=== PATIENT | female | born 1965 | race Caucasian/White ===

== ENCOUNTER 2016-12-05 20:20 | Inpatient (IN) | payer OTHER ==
[~2016-12-05] VITALS: Ht 170.2 cm; Wt 66.4 kg
[2016-12-05] MEDS ORDERED: NOREPINEPHRINE 4 MG in SODIUM CHLORIDE 0.9% 246 ML IV PRN (21:46)
[2016-12-05] MEDS ORDERED: PLEASE ENTER HEIGHT AND WEIGHT MC SCH (22:00)
[2016-12-05] MEDS ORDERED: DEXTROSE 50%, 50ML SYRINGE IVPush PRN (22:00)
[2016-12-05] MEDS ORDERED: LIDOCAINE-MPF 1%, 2ML ENDO PRN (22:00)
[2016-12-05] MEDS ORDERED: PLEASE ENTER ALLERGIES MC SCH ×2 (22:00)
[2016-12-05] MEDS ORDERED: GLUCAGON 1 MG IM PRN (22:00)
[2016-12-05] MEDS ORDERED: VANCOMYCIN PER PHARMACY MC PRN (22:00)
[2016-12-05] MEDS ORDERED: ALBUTEROL/IPRATROPIUM 2.5MG/0.5MG, 3 ML INLINE PRN (22:00)
[2016-12-05] MEDS: PROPOFOL 100 ML IV PRN (22:24)
[2016-12-05] MEDS ORDERED: THIAMINE 200 MG in SODIUM CHLORIDE 0.9% 50 ML IV ONE (22:30)
[2016-12-05] MEDS: FENTANYL PF 100 MCG/2ML IVPush PRN (22:31)
[2016-12-05] MEDS: SODIUM CHLORIDE 0.9% 1,000 ML IV SCH (22:31)
[2016-12-05] MEDS ORDERED: OSEL30CA PO (22:40)
[2016-12-05 22:43] LABS: IS PT STATUS REG ER OR PRE ER? NO
[2016-12-05 23:00] LABS: ABG COLLECTION SITE RIGHT BRACHIAL
[2016-12-05] MEDS ORDERED: CEFTRIAXONE 2 GM in SODIUM CHLORIDE 0.9% 50 ML IV SCH (23:00)
[2016-12-05] MEDS ORDERED: PHARMACOKINETIC MONITORING MC PRN (23:00)
[2016-12-05 23:15] LABS: ASPARTATE AMINO TRANSFERASE 39 U/L (15-37); BLOOD UREA NITROGEN 11 mg/dL (7-18)
[2016-12-05 23:20] LABS: IS PT STATUS REG ER OR PRE ER? NO
[2016-12-05] MEDS: DEXAMETHASONE 4 MG/ML, 1ML IVPush SCH (23:32)
[2016-12-05] MEDS: AMPICILLIN 2 GM in SODIUM CHLORIDE 0.9% 100 ML IV SCH (23:32)
[2016-12-06] MEDS ORDERED: OSEL75CA PO (00:42)
[2016-12-06] MEDS ORDERED: [UNRECOGNIZED DRUG - CODE] PO (00:42)
[2016-12-06] MEDS: FENTANYL PF 100 MCG/2ML IVPush PRN ×5 (01:40→11:42)
[2016-12-06] MEDS: AMPICILLIN 2 GM in SODIUM CHLORIDE 0.9% 100 ML IV SCH ×6 (03:26→23:20)
[2016-12-06] MEDS: METOPROLOL 1 MG/ML, 5ML IVPush SCH ×2 (03:26→08:14)
[2016-12-06 03:40] VITALS: BP 122/61
[2016-12-06 04:00] VITALS: BP 140/67
[2016-12-06] MEDS: ACYCLOVIR 650 MG in SODIUM CHLORIDE 0.9% 100 ML IV SCH ×3 (04:13→19:43)
[2016-12-06 04:28] LABS: ABG COLLECTION SITE RIGHT BRACHIAL
[2016-12-06 04:34] LABS: BLOOD UREA NITROGEN 12 mg/dL (7-18)
[2016-12-06 04:38] LABS: ASPARTATE AMINO TRANSFERASE 36 U/L (15-37)
[2016-12-06 04:42] LABS: IS PT STATUS REG ER OR PRE ER? NO
[2016-12-06] MEDS: PROPOFOL 100 ML IV PRN ×4 (05:11→21:33)
[2016-12-06 06:08] VITALS: BP 157/65
[2016-12-06] MEDS: DEXAMETHASONE 4 MG/ML, 1ML IVPush SCH ×4 (06:20→22:13)
[2016-12-06] MEDS: CEFTRIAXONE PMX 2GM/50ML 50 ML IVPB SCH ×2 (06:20→18:04)
[2016-12-06] MEDS: SODIUM CHLORIDE 0.9% 1,000 ML IV SCH ×2 (07:18→18:05)
[2016-12-06] MEDS: VANCOMYCIN 1,300 MG in SODIUM CHLORIDE 0.9% 250 ML IV SCH ×3 (08:13→20:46)
[2016-12-06] MEDS: OSELTAMIVIR 6 MG/ML ORAL SUSP PO SCH ×2 (08:14→20:45)
[2016-12-06] MEDS: SODIUM CHLORIDE FLUSH 10ML SYR IVF SCH ×2 (08:14→20:46)
[2016-12-06] MEDS ORDERED: OSELTAMIVIR 75 MG CAPSULE PO SCH (09:00)
[2016-12-06] MEDS ORDERED: FENTANYL PF 2,500 MCG in SODIUM CHLORIDE 0.9% 200 ML IV PRN ×2 (09:00→14:31)
[2016-12-06] MEDS: PROPYLTHIOURACIL 50 MG TABLET PO SCH ×4 (10:18→22:13)
[2016-12-06] MEDS: CHOLESTYRAMINE 4GM PACKET PO SCH ×3 (11:18→21:20)
[2016-12-06] MEDS ORDERED: POTASSIUM IODIDE ORAL.SOLN 1 GM/ML PO SCH (11:30)
[2016-12-06] MEDS ORDERED: MIDAZOLAM 1 MG/ML, 5ML ONE (11:59)
[2016-12-06] MEDS ORDERED: MIDAZOLAM 1 MG/ML, 5ML IVPush ONE ×2 (12:30→17:30)
[2016-12-06] MEDS: PROPRANOLOL 20 MG TABLET PO SCH ×2 (14:39→19:47)
[2016-12-06] MEDS: POTASSIUM IODIDE ORAL.SOLN 1 GM/ML PO SCH ×2 (18:05→23:21)
[2016-12-06] MEDS: FAMOTIDINE 20 MG/2 ML IVPush SCH (20:45)
[2016-12-06] MEDS: ENOXAPARIN 40 MG/0.4 ML SQ SCH (20:46)
[2016-12-06] MEDS ORDERED: VANCOMYCIN PER PHARMACY MC PRN (21:30)
[2016-12-06] MEDS ORDERED: DEXTROSE 50%, 50ML SYRINGE IVPush PRN (21:30)
[2016-12-06] MEDS ORDERED: GLUCAGON 1 MG IM PRN (21:30)
[2016-12-07] MEDS: PROPRANOLOL 20 MG TABLET PO SCH ×4 (01:59→20:30)
[2016-12-07] MEDS: PROPYLTHIOURACIL 50 MG TABLET PO SCH ×6 (02:15→22:04)
[2016-12-07] MEDS: AMPICILLIN 2 GM in SODIUM CHLORIDE 0.9% 100 ML IV SCH ×6 (03:15→23:07)
[2016-12-07] MEDS: ACYCLOVIR 650 MG in SODIUM CHLORIDE 0.9% 100 ML IV SCH ×3 (03:15→19:43)
[2016-12-07 04:21] LABS: ABG COLLECTION SITE RIGHT RADIAL; COLLATERAL CIRCULATION TESTING NORMAL
[2016-12-07 04:34] LABS: ASPARTATE AMINO TRANSFERASE 17 U/L (15-37); BLOOD UREA NITROGEN 14 mg/dL (7-18)
[2016-12-07] MEDS: POTASSIUM IODIDE ORAL.SOLN 1 GM/ML PO SCH ×4 (04:39→23:07)
[2016-12-07 05:00] VITALS: BP 119/49
[2016-12-07] MEDS: PROPOFOL 100 ML IV PRN ×2 (05:38→12:47)
[2016-12-07] MEDS: CEFTRIAXONE PMX 2GM/50ML 50 ML IVPB SCH ×2 (05:39→18:18)
[2016-12-07] MEDS: DEXAMETHASONE 4 MG/ML, 1ML IVPush SCH ×4 (05:39→22:04)
[2016-12-07] MEDS: CHOLESTYRAMINE 4GM PACKET PO SCH ×4 (06:00→20:35)
[2016-12-07] MEDS: SODIUM CHLORIDE 0.9% 1,000 ML IV SCH ×2 (06:19→19:50)
[2016-12-07] MEDS: VANCOMYCIN 1,300 MG in SODIUM CHLORIDE 0.9% 250 ML IV SCH ×2 (08:13→20:36)
[2016-12-07] MEDS: OSELTAMIVIR 6 MG/ML ORAL SUSP PO SCH ×2 (08:49→20:35)
[2016-12-07] MEDS: FAMOTIDINE 20 MG/2 ML IVPush SCH ×2 (08:49→20:36)
[2016-12-07] MEDS: SODIUM CHLORIDE FLUSH 10ML SYR IVF SCH ×2 (08:50→20:36)
[2016-12-07] MEDS: ENOXAPARIN 40 MG/0.4 ML SQ SCH (20:35)
[2016-12-08] MEDS: PROPYLTHIOURACIL 50 MG TABLET PO SCH ×5 (02:05→20:36)
[2016-12-08] MEDS: PROPRANOLOL 20 MG TABLET PO SCH ×2 (02:30→08:30)
[2016-12-08] MEDS: AMPICILLIN 2 GM in SODIUM CHLORIDE 0.9% 100 ML IV SCH ×6 (03:07→21:54)
[2016-12-08] MEDS: ACYCLOVIR 650 MG in SODIUM CHLORIDE 0.9% 100 ML IV SCH ×3 (03:07→19:24)
[2016-12-08] MEDS: DEXAMETHASONE 4 MG/ML, 1ML IVPush SCH ×4 (03:55→21:55)
[2016-12-08] MEDS: POTASSIUM IODIDE ORAL.SOLN 1 GM/ML PO SCH ×4 (05:06→23:16)
[2016-12-08 05:13] LABS: ABG COLLECTION SITE RIGHT RADIAL; COLLATERAL CIRCULATION TESTING NORMAL
[2016-12-08 05:39] LABS: BLOOD UREA NITROGEN 13 mg/dL (7-18)
[2016-12-08] MEDS: CHOLESTYRAMINE 4GM PACKET PO SCH ×4 (06:00→21:54)
[2016-12-08] MEDS: CEFTRIAXONE PMX 2GM/50ML 50 ML IVPB SCH ×2 (06:13→17:27)
[2016-12-08] MEDS: VANCOMYCIN 1,300 MG in SODIUM CHLORIDE 0.9% 250 ML IV SCH ×2 (07:42→20:36)
[2016-12-08] MEDS: SODIUM CHLORIDE 0.9% 1,000 ML IV SCH (07:42)
[2016-12-08] MEDS: OSELTAMIVIR 6 MG/ML ORAL SUSP PO SCH ×2 (08:52→20:37)
[2016-12-08] MEDS: FAMOTIDINE 20 MG/2 ML IVPush SCH ×2 (08:52→20:35)
[2016-12-08] MEDS: SODIUM CHLORIDE FLUSH 10ML SYR IVF SCH ×2 (08:52→21:56)
[2016-12-08] MEDS: POTASSIUM CHLORIDE 20 MEQ TAB.ER.PRT PO ONE ×2 (10:30→15:58)
[2016-12-08] MEDS: ENALAPRILAT 1.25 MG/ML, 2ML IV PRN ×2 (15:01→21:55)
[2016-12-08] MEDS: FENTANYL PF 100 MCG/2ML IVPush PRN ×2 (17:27→23:49)
[2016-12-08] MEDS: AMLODIPINE 5 MG TABLET PO SCH (18:46)
[2016-12-08] MEDS: ENOXAPARIN 40 MG/0.4 ML SQ SCH (20:36)
[2016-12-08] MEDS ORDERED: POTASSIUM CHLORIDE 20 MEQ PACKET PO ONE (21:30)
[2016-12-08 22:20] LABS: BLOOD UREA NITROGEN 10 mg/dL (7-18)
[2016-12-08] MEDS ORDERED: POTASSIUM CHLORIDE 40 MEQ in SODIUM CHLORIDE 0.9% 500 ML IV ONE (23:30)
[2016-12-08] MEDS ORDERED: MAGNESIUM SULFATE PMX 4GM/100M 100 ML IV ONE (23:30)
[2016-12-09] MEDS: PROPYLTHIOURACIL 50 MG TABLET PO SCH ×6 (01:28→22:54)
[2016-12-09] MEDS: AMPICILLIN 2 GM in SODIUM CHLORIDE 0.9% 100 ML IV SCH ×2 (03:06→06:15)
[2016-12-09] MEDS ORDERED: POTASSIUM CHLORIDE 40 MEQ in SODIUM CHLORIDE 0.9% 500 ML IV ONE (03:30)
[2016-12-09] MEDS: ACYCLOVIR 650 MG in SODIUM CHLORIDE 0.9% 100 ML IV SCH (03:44)
[2016-12-09] MEDS: DEXAMETHASONE 4 MG/ML, 1ML IVPush SCH ×4 (03:44→22:53)
[2016-12-09 04:46] LABS: ABG COLLECTION SITE RIGHT RADIAL; COLLATERAL CIRCULATION TESTING NORMAL
[2016-12-09 04:56] LABS: ASPARTATE AMINO TRANSFERASE 14 U/L (15-37); BLOOD UREA NITROGEN 10 mg/dL (7-18)
[2016-12-09] MEDS: CEFTRIAXONE PMX 2GM/50ML 50 ML IVPB SCH ×2 (05:45→18:01)
[2016-12-09] MEDS: POTASSIUM IODIDE ORAL.SOLN 1 GM/ML PO SCH ×3 (05:45→20:37)
[2016-12-09] MEDS: CHOLESTYRAMINE 4GM PACKET PO SCH ×4 (06:15→21:00)
[2016-12-09] MEDS: VANCOMYCIN 1,300 MG in SODIUM CHLORIDE 0.9% 250 ML IV SCH (07:26)
[2016-12-09] MEDS: FAMOTIDINE 20 MG/2 ML IVPush SCH ×2 (08:40→21:11)
[2016-12-09] MEDS: AMLODIPINE 5 MG TABLET PO SCH (08:40)
[2016-12-09] MEDS: SODIUM CHLORIDE FLUSH 10ML SYR IVF SCH ×2 (08:40→21:10)
[2016-12-09] MEDS: OSELTAMIVIR 6 MG/ML ORAL SUSP PO SCH (09:13)
[2016-12-09] MEDS: ENOXAPARIN 40 MG/0.4 ML SQ SCH (21:11)
[2016-12-10] MEDS: POTASSIUM IODIDE ORAL.SOLN 1 GM/ML PO SCH ×3 (02:36→15:04)
[2016-12-10] MEDS: PROPYLTHIOURACIL 50 MG TABLET PO SCH ×6 (02:36→22:19)
[2016-12-10] MEDS: DEXAMETHASONE 4 MG/ML, 1ML IVPush SCH ×4 (04:37→22:18)
[2016-12-10 04:48] LABS: BLOOD UREA NITROGEN 21 mg/dL (7-18)
[2016-12-10 05:50] LABS: DIFF TOTAL CELLS COUNTED 100 CELL DIFF
[2016-12-10 05:52] LABS: VERIFY COUNTS? YES
[2016-12-10 05:53] LABS: ANISOCYTOSIS 1+; GIANT PLATELETS 1+; LARGE PLATELETS 1+; POLYCHROMASIA 1+
[2016-12-10] MEDS: CHOLESTYRAMINE 4GM PACKET PO SCH ×4 (06:00→21:00)
[2016-12-10] MEDS: CEFTRIAXONE PMX 2GM/50ML 50 ML IVPB SCH ×2 (06:10→18:05)
[2016-12-10] MEDS ORDERED: POTASSIUM CHLORIDE 20 MEQ TAB.ER.PRT PO ONE ×2 (08:00→12:00)
[2016-12-10] MEDS: FAMOTIDINE 20 MG/2 ML IVPush SCH ×2 (08:57→21:20)
[2016-12-10] MEDS: OSELTAMIVIR 75 MG CAPSULE NG SCH ×2 (08:57→22:19)
[2016-12-10] MEDS: AMLODIPINE 5 MG TABLET PO SCH (08:58)
[2016-12-10] MEDS: SODIUM CHLORIDE FLUSH 10ML SYR IVF SCH ×2 (09:14→22:19)
[2016-12-10] MEDS: VANCOMYCIN 1,300 MG in SODIUM CHLORIDE 0.9% 250 ML IV SCH (10:54)
[2016-12-10] MEDS ORDERED: PHARMACOKINETIC MONITORING MC PRN (11:00)
[2016-12-10] MEDS ORDERED: PHARMACOKINETIC CONSULTATION MC ONE (11:00)
[2016-12-10] MEDS ORDERED: VANCOMYCIN PER PHARMACY MC PRN (11:00)
[2016-12-10 17:46] VITALS: BP 152/76
[2016-12-10 18:46] VITALS: BP 145/74
[2016-12-10] MEDS: ENOXAPARIN 40 MG/0.4 ML SQ SCH (21:17)
[2016-12-11] MEDS: VANCOMYCIN 1,300 MG in SODIUM CHLORIDE 0.9% 250 ML IV SCH ×2 (01:13→12:03)
[2016-12-11 01:44] VITALS: BP 162/80
[2016-12-11] MEDS: PROPYLTHIOURACIL 50 MG TABLET PO SCH ×5 (02:30→20:58)
[2016-12-11 05:51] LABS: BLOOD UREA NITROGEN 17 mg/dL (7-18)
[2016-12-11] MEDS: CHOLESTYRAMINE 4GM PACKET PO SCH ×4 (06:00→20:59)
[2016-12-11] MEDS: DEXAMETHASONE 4 MG/ML, 1ML IVPush SCH ×4 (06:47→22:48)
[2016-12-11] MEDS: CEFTRIAXONE PMX 2GM/50ML 50 ML IVPB SCH (06:51)
[2016-12-11 08:03] VITALS: BP 148/75
[2016-12-11] MEDS: FAMOTIDINE 20 MG/2 ML IVPush SCH (09:28)
[2016-12-11] MEDS: SODIUM CHLORIDE FLUSH 10ML SYR IVF SCH ×2 (09:28→20:58)
[2016-12-11] MEDS: POTASSIUM IODIDE ORAL.SOLN 1 GM/ML PO SCH ×4 (12:00→16:49)
[2016-12-11] MEDS: OSELTAMIVIR 75 MG CAPSULE NG SCH ×2 (12:03→20:58)
[2016-12-11] MEDS: AMLODIPINE 5 MG TABLET PO SCH (12:05)
[2016-12-11 14:29] VITALS: BP 100/57
[2016-12-11 20:09] VITALS: BP 138/68
[2016-12-11] MEDS: ENOXAPARIN 40 MG/0.4 ML SQ SCH (21:00)
[2016-12-12] MEDS: POTASSIUM IODIDE ORAL.SOLN 1 GM/ML PO SCH ×3 (00:06→12:00)
[2016-12-12] MEDS: PROPYLTHIOURACIL 50 MG TABLET PO SCH ×3 (01:32→10:15)
[2016-12-12] MEDS: DEXAMETHASONE 4 MG/ML, 1ML IVPush SCH ×2 (05:13→10:16)
[2016-12-12] MEDS: CHOLESTYRAMINE 4GM PACKET PO SCH ×2 (05:13→11:00)
[2016-12-12 05:51] LABS: BLOOD UREA NITROGEN 20 mg/dL (7-18)
[2016-12-12 07:15] LABS: ANISOCYTOSIS 1+; LARGE PLATELETS 1+; POLYCHROMASIA 1+
[2016-12-12 07:51] VITALS: BP 133/68
[2016-12-12] MEDS: AMLODIPINE 5 MG TABLET PO SCH (10:14)
[2016-12-12] MEDS: SODIUM CHLORIDE FLUSH 10ML SYR IVF SCH (10:16)
[2016-12-12] MEDS: OSELTAMIVIR 75 MG CAPSULE NG SCH (10:16)
[2016-12-12] MEDS ORDERED: METH10TA6 PO (10:46)
== END 2016-12-12 12:30 | disposition home or self-care (01) | DRG 643 ==
LOC: CCU 21:15 → 4WST 12-10 17:30
PROVIDERS: ADMIT Internal Medicine Pulmonary Disease; ATTEND Internal Medicine Pulmonary Disease
PROC: 5A1945Z Respiratory Ventilation, 24-96 Consecutive Hours (ICD-10-PCS; principal; 2016-12-05)
PROC: 0BH17EZ Insertion of Endotracheal Airway into Trachea, Via Natural or Artificial Opening (ICD-10-PCS; 2016-12-05)
DX: E05.91 Thyrotoxicosis, unspecified with thyrotoxic crisis or storm (principal); J96.90 Respiratory failure, unspecified, unspecified whether with hypoxia or hypercapnia; E43 Unspecified severe protein-calorie malnutrition; G93.41 Metabolic encephalopathy; J98.11 Atelectasis; R78.81 Bacteremia; Z99.11 Dependence on respirator [ventilator] status; G40.409 Other generalized epilepsy and epileptic syndromes, not intractable, without status epilepticus; J10.1 Influenza due to other identified influenza virus with other respiratory manifestations; R40.2420 Glasgow coma scale score 9-12, unspecified time; J32.2 Chronic ethmoidal sinusitis; R00.1 Bradycardia, unspecified; D72.821 Monocytosis (symptomatic); Z68.22 Body mass index [BMI] 22.0-22.9, adult
CPT/HCPCS: 36415; 36600; 70551; 71010; 74230; 76536; 80048; 80053; 80202; 82140; 82803; 83520; 83605; 83735; 83930; 83935; 84436; 84439; 84443; 84445; 84478; 84481; 84484; 85025; 85651; 86140; 87040; 87070; 87081; 87107; 87205; 93005; 93306; 94002; 94003; 95812; 95816; J0133; J0290; J0696; J1100; J1650; J2250; J2704; J3010; J3370; J3411; J3480; J3475; J7030; J7040; J7050; S0028